=== PATIENT | female | born 1955 | race Two or more races ===

== ENCOUNTER → 2017-02-06 | Outpatient (CLI) | payer BC ==
[~2017-02-06] MED LIST: LIPITOR20 MG PO
== END | disposition home or self-care (01) ==
LOC: AMB 10:16
PROC: 0HB0XZZ Excision of Scalp Skin, External Approach (ICD-10-PCS; principal; 2017-02-06)
DX: L72.11 Pilar cyst (principal)
CPT/HCPCS: 88304